=== PATIENT | male | born 1970 | race Caucasian/White ===

== ENCOUNTER 2016-08-13 05:33 | Emergency (ER) | payer OTHER ==
[~2016-08-13] VITALS: Ht 182.9 cm; Wt 77.8 kg
[~2016-08-13 05:33] MED LIST: CLX/20 PO; OMEP20TA PO
[2016-08-13 05:37] VITALS: TEMP 36.7; Ht 182.9 cm; Wt 77.8 kg
--- NOTE | 2016-08-13 06:25 | EMERGENCY ROOM VISIT NOTE ---
History Report prepared by Faisalibsilverio: Margaret Haji Under the Supervision of: Dr. Ana Lilia Jenkins M.D. First contact with patient: 05:56 Chief Complaint: SEIZURE Stated Complaint: SEIZURE Nursing Triage Summary: pt was on seizure medication 8 years ago from a seizure after hitting his head. patient states he has not had a seizure in 8 years. states she was driving patient to work and she witnessed him having a seizure for aproximately 1 minute. patient then was unresponsive for approximately 2 minutes after event. states became rigid on bilateral arms and shaking his head with eyes rolled into head. tearful at this time. patient states he is really scared.. he has no idea what happened. History of Present Illness The patient is a 45 year old male who presents to the Emergency Room to be evaluated after a seizure that occurred this morning. Per patient's , she was driving the patient to work when she looked over and saw his left hand curled in while he was shaking profusely. He only began to respond to verbal stimuli about a minute and a half later. When she asked how he was, he said that he was fine. Currently, the patient has a slight headache. He has had a frontal headache all week and developed a head cold a few days ago. The patient reports a history of one seizure over 8 years ago after trauma to his head. He was on Dilantin but was taken off of it 8 years ago. The patient chews tobacco and drinks 2 cans of beer almost every night. He denies drinking more than usual last night. He also denies the possibility of withdrawal. He has never felt like this after drinking alcohol. He had a normal amount of sleep last night. He denies unusual caffeine intake this morning. He does not smoke. Source of History: patient, spouse/significant other Onset: this morning Position: other (Global) Quality: other (seizure) Timing: resolved Associated Symptoms: + headache Review of Systems See HPI for pertinent positives & negatives. A total of 10 systems reviewed and were otherwise negative. Past Medical & Surgical Medical Problems: (1) Back pain (2) Contusion of foot (3) Epigastric abdominal pain (4) Neck pain on right side (5) Shoulder sprain Family History FH: heart disease Hypertension Social History Smoking Status: Never Smoker Alcohol Use: occasionally Marital Status: Housing Status: lives with family Occupation Status: employed Current/Historical Medications Scheduled Citalopram (Citalopram Hydrobromide), 20 MG PO DAILY Levetiracetam (Keppra), 1 TAB PO BID Allergies Coded Allergies: No Known Allergies (Verified , 08/04/15) Physical Exam Vital Signs Date Time Temp Pulse Resp B/P Pulse Ox O2 Delivery O2 Flow Rate FiO2 08/13/16 07:40 92 18 127/85 97 Room Air 08/13/16 07:07 79 18 140/92 97 Room Air 08/13/16 06:47 78 20 153/101 98 Room Air 08/13/16 06:11 96 08/13/16 05:37 36.7 98 18 154/94 99 Room Air Physical Exam Vital signs reviewed. General: Well-appearing 45 year old male, in no significant distress. HEENT: No scleral icterus, PERRLA, poor dentition. neck supple. Atraumatic. Poor dentition. Cardiovascular: Regular rate and rhythm, no extra sounds. Pulmonary: Clear to auscultation bilaterally, normal work of breathing. Abdomen: Soft, nontender, nondistended, positive bowel sounds. Musculoskeletal: Atraumatic, no peripheral edema. Neurologic: Patient awake alert and oriented x 3, full strength in all 4 extremities. Cranial nerves 2 through 12 grossly intact. No meningeal signs. Skin: Warm, dry, no rash Medical Decision & Procedures ER Provider Diagnostic Interpretation: CT results as stated below per my review and radiologist interpretation: CT OF THE HEAD WITHOUT CONTRAST CLINICAL HISTORY: Seizure. COMPARISON STUDY: Head CT December 30, 2011. CT DOSE: 537.48 mGy.cm TECHNIQUE: Helical axial images of the head were obtained without IV contrast. Automated exposure control was utilized for the study. FINDINGS: No acute intracranial hemorrhage, midline shift or mass effect is present. Ventricular system is normal. The basilar cisterns are patent. There are no extra-axial collections. Dominguez-white differentiation is maintained. There are no findings to suggest acute dural sinus thrombosis or acute territorial infarct. There is no calvarial fracture. There is mild mucosal thickening in the sinuses, most evident within the right maxillary sinus. IMPRESSION: 1. No acute intracranial findings. 2. Mild mucosal thickening of the sinuses. 3. No calvarial fracture. Electronically signed by: All Price M.D. 08/13/2016 7:07 AM Dictated Date/Time: 08/13/2016 7:05 AM Laboratory Results 08/13/16 06:00 Red Blood Count 4.55, Mean Corpuscular Volume 92.5, Mean Corpuscular Hemoglobin 34.3, Mean Corpuscular Hemoglobin Concent 37.1, Mean Platelet Volume 9.0, Neutrophils (%) (Auto) 45.6, Lymphocytes (%) (Auto) 39.6, Monocytes (%) (Auto) 11.5, Eosinophils (%) (Auto) 2.6, Basophils (%) (Auto) 0.2, Neutrophils # (Auto ) 1.90, Lymphocytes # (Auto) 1.65, Monocytes # (Auto) 0.48, Eosinophils # (Auto ) 0.11, Basophils # (Auto) 0.01 08/13/16 06:00 Test 08/13/16 05:59 08/13/16 06:00 08/13/16 06:20 08/13/16 06:45 Bedside Glucose 106 mg/dl (70-99) White Blood Count 4.17 K/uL (4.8-10.8) Red Blood Count 4.55 M/uL (4.7-6.1) Hemoglobin 15.6 g/dL (14.0-18.0) Hematocrit 42.1 % (42-52) Mean Corpuscular Volume 92.5 fL (80-100) Mean Corpuscular Hemoglobin 34.3 pg (25-34) Mean Corpuscular Hemoglobin Concent 37.1 g/dl (32-36) Platelet Count 225 K/uL (130-400) Mean Platelet Volume 9.0 fL (7.4-10.4) Neutrophils (%) (Auto) 45.6 % Lymphocytes (%) (Auto) 39.6 % Monocytes (%) (Auto) 11.5 % Eosinophils (%) (Auto) 2.6 % Basophils (%) (Auto) 0.2 % Neutrophils # (Auto) 1.90 K/uL (1.4-6.5) Lymphocytes # (Auto) 1.65 K/uL (1.2-3.4) Monocytes # (Auto) 0.48 K/uL (0.11-0.59) Eosinophils # (Auto) 0.11 K/uL (0-0.5) Basophils # (Auto) 0.01 K/uL (0-0.2) RDW Standard Deviation 40.6 fL (36.4-46.3) RDW Coefficient of Variation 12.0 % (11.5-14.5) Immature Granulocyte % (Auto) 0.5 % Immature Granulocyte # (Auto) 0.02 K/uL (0.00-0.02) Anion Gap 10.0 mmol/L (3-11) Est Creatinine Clear Calc Drug Dose 127.8 ml/min Estimated GFR () 125.3 Estimated GFR (Non- 108.1 BUN/Creatinine Ratio 10.1 (10-20) Calcium Level 8.9 mg/dl (8.5-10.1) Magnesium Level 2.2 mg/dl (1.8-2.4) Total Bilirubin 0.6 mg/dl (0.2-1) Direct Bilirubin 0.1 mg/dl (0-0.2) Aspartate Amino Transf (AST/SGOT) 14 U/L (15-37) Alanine Aminotransferase (ALT/SGPT) 21 U/L (12-78) Alkaline Phosphatase 75 U/L (45-117) Total Protein 7.8 gm/dl (6.4-8.2) Albumin 4.0 gm/dl (3.4-5.0) Salicylates Level < 1.7 mg/dl (2.8-20) Acetaminophen Level < 2 ug/ml (10-30) Ethyl Alcohol mg/dL < 3.0 mg/dl (0-3) Urine Color YELLOW Urine Appearance CLOUDY (CLEAR) Urine pH 7.5 (4.5-7.5) Urine Specific Sabael 1.002 (1.000-1.030) Urine Protein NEG (NEG) Urine Glucose (UA) NEG (NEG) Urine Ketones NEG (NEG) Urine Occult Blood NEG (NEG) Urine Nitrite NEG (NEG) Urine Bilirubin NEG (NEG) Urine Urobilinogen NEG (NEG) Urine Leukocyte Esterase NEG (NEG) Urine WBC (Auto) 0 /hpf (0-5) Urine RBC (Auto) 0-4 /hpf (0-4) Urine Hyaline Casts (Auto) 0 /lpf (0-5) Urine Epithelial Cells (Auto) 0-5 /lpf (0-5) Urine Bacteria (Auto) NEG (NEG) Urine Opiates Screen NEG (NEG) Urine Methadone, Qualitative NEG (NEG) Urine Barbiturates NEG (NEG) Urine Phencyclidine (PCP) Level NEG (NEG) Ur Amphetamine/Methamphetamine NEG (NEG) MDMA (Ecstasy) Screen NEG (NEG) Urine Benzodiazepines Screen NEG (NEG) Urine Cocaine Metabolite NEG (NEG) Urine Marijuana (THC) NEG (NEG) Laboratory results per my review. Medications Administered Medications (Trade) Dose Ordered Sig/Riri Route Start Time Stop Time Status Last Admin Dose Admin Potassium Citrate (Urocit-K Tab) 40 meq NOW STAT PO 08/13/16 07:18 08/13/16 07:19 DC 08/13/16 07:31 40 MEQ Levetiracetam (Keppra Tab) 500 mg NOW STAT PO 08/13/16 07:33 08/13/16 07:35 DC 08/13/16 07:56 500 MG ECG Indication: other (seizure) Rate (beats per minute): 89 Rhythm: normal sinus Findings: no acute ischemic change, no ectopy ED Course 0610: The patient was evaluated in room B6. A complete history and physical examination was performed. 0718: Ordered Potassium Citrate 40 meq PO. 0733: Ordered Keppra Tab 500 mg PO. 0739: Upon reevaluation, the patient was resting comfortably. I discussed findings with him. He verbalized agreement of the treatment plan. The patient was discharged home. Medical Decision Differential diagnosis: Intracranial hemorrhage, intracranial mass, migraine headache, tension headache , sinusitis, meningitis Pt was placed on the school lunch monitor with SZ precautions maintained. CT head was performed and is negative. Lab work reveals a mild hypokalemia, pt was given 40 MEq of KCl. Lab work is otherwise unrevealing. There does not appear to be a specific trigger for the SZ today. I discussed the case with Dr Berger who suggests that b/c this is the second SZ he should be placed on medications. He was given Keppra 500 mg po in ED and a Rx for [address] Berger recommends close f/u with PCP for EEG/MRI and referral to neurology. Pt was informed of the plan. He was d/c to care of his and will return to the ED for worsening of symptoms or any medical concerns. Impression Primary Impression: Seizure Scribe Attestation The scribe's documentation has been prepared under my direction and personally reviewed by me in its entirety. I confirm that the note above accurately reflects all work, treatment, procedures, and medical decision making performed by me. Departure Information Dispostion Home / Self-Care Prescriptions Levetiracetam (KEPPRA) 500 Mg Tab 1 TAB PO BID for 30 Days, #60 TAB 5 Refills Prov: Ana Lilia Jenkins M.D. 08/13/16 Referrals Justin Suarez M.D.(JUAN) (PCP) Patient Instructions My [facility], Seizures - [facility] Additional Instructions Diagnosis: Seizure Keppra 500 mg twice daily Do not drive until you are cleared by neurology Drink plenty of clear fluids. Follow up with your PCP this week for reevaluation and referral to neurology. Return to the ER for worsening of symptoms or any medical concerns.
[2016-08-13 06:31] LABS: BASO % 0.2 %; BASO ABS # 0.01 K/uL (0-0.2); COMPLETE YES; EOS % 2.6 %; HEMATOCRIT 42.1 % (42-52); IG% 0.5 %; LYMPH % 39.6 %; LYMPH ABS # 1.65 K/uL (1.2-3.4); MEAN CELL VOLUME 92.5 fL (80-100); MEAN CORPUSCULAR HEMOGLOBIN 34.3 pg (25-34); MEAN CORPUSCULAR HGB CONC 37.1 g/dl (32-36); MONO % 11.5 %; NEUT % 45.6 %; PLATELET COUNT 225 K/uL (130-400); RED BLOOD COUNT 4.55 M/uL (4.7-6.1); WHITE BLOOD COUNT 4.17 K/uL (4.8-10.8)
[2016-08-13 06:51] LABS: BUN/CREATININE RATIO 10.1 (10-20); CALCIUM 8.9 mg/dl (8.5-10.1); CREATININE 0.81 mg/dl (0.60-1.40); MAGNESIUM 2.2 mg/dl (1.8-2.4); POTASSIUM 3.2 mmol/L (3.5-5.1)
[2016-08-13 07:02] LABS: MANUAL MICROSCOPIC REQUIRED? NO; REVIEW REQ? NO; URINE APPEARANCE CLOUDY (CLEAR); URINE BILIRUBIN NEG (NEG); URINE COLOR YELLOW; URINE EPITHELIAL CELL AUTO 0-5 /lpf (0-5); URINE NITRITE NEG (NEG); URINE PH 7.5 (4.5-7.5); URINE SPECIFIC GRAVITY 1.002 (1.000-1.030); UROBILINOGEN NEG (NEG); ZZUR CULT IF INDIC CLEAN CATCH NO
[2016-08-13 07:03] LABS: ACETAMINOPHEN < 2 ug/ml (10-30)
--- NOTE | 2016-08-13 07:08 | DIAGNOSTIC IMAGING REPORT ---
CT OF THE HEAD WITHOUT CONTRAST CLINICAL HISTORY: Seizure. COMPARISON STUDY: Head CT December 30, 2011. CT DOSE: 537.48 mGy.cm TECHNIQUE: Helical axial images of the head were obtained without IV contrast. Automated exposure control was utilized for the study. FINDINGS: No acute intracranial hemorrhage, midline shift or mass effect is present. Ventricular system is normal. The basilar cisterns are patent. There are no extra-axial collections. Dominguez-white differentiation is maintained. There are no findings to suggest acute dural sinus thrombosis or acute territorial infarct. There is no calvarial fracture. There is mild mucosal thickening in the sinuses, most evident within the right maxillary sinus. IMPRESSION: 1. No acute intracranial findings. 2. Mild mucosal thickening of the sinuses. 3. No calvarial fracture. Electronically signed by: All Price M.D. 08/13/2016 7:07 AM Dictated Date/Time: 08/13/2016 7:05 AM
[2016-08-13] MEDS ORDERED: POTASSIUM CITRATE 10 MEQ TAB PO STA (07:18)
[2016-08-13] MEDS ORDERED: LEVETIRACETAM 500 MG TAB PO STA (07:33)
[2016-08-13] MEDS ORDERED: LEVE500T13 PO (07:36)
[2016-08-13 07:40] VITALS: BP 127/85; PULSE 92; O2SAT 97
[2016-08-13 07:50] LABS: BENZODIAZEPINE, URINE NEG (NEG); COCAINE,URINE NEG (NEG); PHENCYCLIDINE, URINE NEG (NEG)
== END 2016-08-13 07:59 | disposition home or self-care (01) ==
LOC: C.EDB 05:34
DX: G40.909 Epilepsy, unspecified, not intractable, without status epilepticus (principal); Z87.820 Personal history of traumatic brain injury; Z87.828 Personal history of other (healed) physical injury and trauma; Z79.899 Other long term (current) drug therapy; Z82.49 Family history of ischemic heart disease and other diseases of the circulatory system

== ENCOUNTER → 2016-09-16 | Outpatient (CLI) | payer OTHER ==
[~2016-09-16] MED LIST changes: +GADAVIST IV PRN; +LEVE500T13 PO; -OMEP20TA PO
--- NOTE | 2016-09-16 08:44 | DIAGNOSTIC IMAGING REPORT ---
ORBIT RADIOGRAPHS 3 VIEWS HISTORY: Pre-MRI screening pre-MRI screening. COMPARISON: None. FINDINGS: There are no radiopaque foreign bodies identified within the orbits. IMPRESSION: No radiopaque foreign bodies identified within the orbits. Electronically signed by: Emiliano Cohen M.D. 09/16/2016 8:42 AM Dictated Date/Time: 09/16/2016 8:41 AM
--- NOTE | 2016-09-16 10:57 | DIAGNOSTIC IMAGING REPORT ---
MRI OF THE BRAIN WITHOUT AND WITH IV CONTRAST SEIZURE PROTOCOL CLINICAL HISTORY: Seizure. COMPARISON STUDY: Head CT August 13, 2016. TECHNIQUE: Utilizing a 1.5 Karina magnet and dedicated coil, multiplanar, multiecho imaging of the brain was performed pre and postcontrast administration. IV administration of 7 mL of Gadavist contrast was uneventful. Thin cut coronal T2 imaging was performed according to seizure protocol. FINDINGS: There are no areas of restricted diffusion. No acute intracranial hemorrhage, midline shift or mass effect is present. Brain volume is normal. Ventricular system is normal. Basilar cisterns are patent. There are no extra-axial collections. Flow-voids for the major intracranial vessels are present. There are no intracranial masses or areas of pathologic enhancement. There is no MRI evidence of mesial temporal sclerosis. There are scattered subcortical white matter T2 hyperintense foci. Calvarial signal is maintained. Orbits and sinuses are unremarkable. IMPRESSION: 1. No acute intracranial findings. 2. No intracranial mass or pathologic enhancement. 3. Several subcortical white matter T2 hyperintense foci. The findings could reflect small vessel disease or sequela of migraine headaches although are entirely nonspecific. Electronically signed by: All Price M.D. 09/16/2016 10:56 AM Dictated Date/Time: 09/16/2016 10:48 AM
== END | disposition home or self-care (01) ==
LOC: C.MRI 08:03
PROVIDERS: ATTEND Internal Medicine Cardiovascular Disease
DX: G40.119 Localization-related (focal) (partial) symptomatic epilepsy and epileptic syndromes with simple partial seizures, intractable, without status epilepticus (principal); Z13.5 Encounter for screening for eye and ear disorders

== ENCOUNTER → 2016-09-20 | Outpatient (CLI) | payer OTHER ==
[~2016-09-20] MED LIST changes: -GADAVIST IV PRN
--- NOTE | 2016-09-20 23:29 | ELECTROENCEPHALOGRAPH REPORT ---
REQUESTED BY: Alejandra Tirado PA-C. CLINICAL DIAGNOSIS: Single seizure 4 weeks ago, question underlying epilepsy. EEG DIAGNOSIS: Essentially normal during wakefulness. DESCRIPTION OF TRACING: This EEG was done in the laboratory, was excellent technical quality with few or no muscle or movement artifacts. Simultaneous video analysis of patient movement and behavior was obtained. Photic stimulation was performed. Hyperventilation was not. Drowsiness is not seen consistently except in brief episodes. No sleep recording is obtained. Under these conditions, there is evidence for normal appearing background rhythm in the alpha range of up to 10-11 Hz of maximum frequency and 30 microvolts of maximum amplitude. This is maximum in posterior head regions and bilaterally symmetrical. Polymorphic mid frequency theta activity is seen over all head regions without clear focal or regional predominance. Anterior head region maximal bilaterally symmetrical low-voltage fast activity in the beta range is present. Photic stimulation provoked some minimal driving response. No photomyogenic or photoparoxysmal components were noted. Short duration of drowsiness is obtained during which no normal activations are seen. At no time during the waking or brief patient drowsy tracing is there evidence for potentially epileptogenic activity in the form of polyspike or spike wave bursts, focal sharp waves or focal spikes. INTERPRETATION: This electroencephalogram is essentially normal during wakefulness without evidence for focal or generalized encephalopathy and without evidence for potentially epileptogenic activity.
== END | disposition home or self-care (01) ==
LOC: C.NEUR 13:05
PROVIDERS: ATTEND Internal Medicine Cardiovascular Disease
DX: G40.119 Localization-related (focal) (partial) symptomatic epilepsy and epileptic syndromes with simple partial seizures, intractable, without status epilepticus (principal)

== ENCOUNTER 2017-05-06 06:29 | Emergency (ER) | payer OTHER ==
[~2017-05-06] VITALS: Ht 182.9 cm; Wt 79.4 kg
[2017-05-06 06:33] VITALS: TEMP 36.5; Ht 182.9 cm; Wt 79.4 kg
[2017-05-06] MEDS ORDERED: SODIUM CHLORIDE 0.9% 1000ML 1,000 ML IV STA (07:09)
[2017-05-06 07:35] LABS: URINE APPEARANCE CLEAR (CLEAR); URINE BILIRUBIN NEG (NEG); URINE COLOR YELLOW; URINE NITRITE NEG (NEG); URINE SPECIFIC GRAVITY 1.007 (1.000-1.030); UROBILINOGEN NEG (NEG)
[2017-05-06] MEDS ORDERED: LEVE500T13 PO (07:40)
[2017-05-06 07:45] LABS: MANUAL MICROSCOPIC REQUIRED? NO; REVIEW REQ? NO
[2017-05-06 07:53] LABS: BASO % 0.2 %; BASO ABS # 0.01 K/uL (0-0.2); COMPLETE YES; EOS % 1.4 %; HEMATOCRIT 43.8 % (42-52); IG% 0.4 %; LYMPH % 30.6 %; LYMPH ABS # 1.52 K/uL (1.2-3.4); MEAN CELL VOLUME 93.4 fL (80-100); MEAN CORPUSCULAR HEMOGLOBIN 34.8 pg (25-34); MEAN CORPUSCULAR HGB CONC 37.2 g/dl (32-36); MEAN PLATELET VOLUME 9.2 fL (7.4-10.4); NEUT % 59.4 %; PLATELET COUNT 204 K/uL (130-400); RED BLOOD COUNT 4.69 M/uL (4.7-6.1); WHITE BLOOD COUNT 4.97 K/uL (4.8-10.8)
--- NOTE | 2017-05-06 07:55 | DIAGNOSTIC IMAGING REPORT ---
PA CHEST WITH ABDOMINAL SERIES CLINICAL HISTORY: Central abdominal pain. FINDINGS: A PA chest radiograph is compared to study dated 08/04/2015. The cardiomediastinal silhouette is unremarkable. The lungs and pleural spaces are clear. No pneumothorax is seen. The bony thorax is grossly intact. Supine and erect abdominal radiographs are correlated with abdominal ultrasound dated 09/08/2010. There is a nonobstructed abdominal bowel gas pattern. No evidence of intraperitoneal free air is seen. There are calcified splenic granulomas seen in the left upper quadrant. A phlebolith is noted in the left hemipelvis. The lumbosacral spine and bony pelvis appear intact. IMPRESSION: 1. No active disease in the chest. 2. Nonobstructed abdominal bowel gas pattern. Electronically signed by: Harvinder Pritchett M.D. 05/06/2017 7:54 AM Dictated Date/Time: 05/06/2017 7:53 AM
[2017-05-06 08:12] LABS: BUN/CREATININE RATIO 11.5 (10-20); CALCIUM 9.3 mg/dl (8.5-10.1); CREATININE 0.88 mg/dl (0.60-1.40); POTASSIUM 3.6 mmol/L (3.5-5.1)
[2017-05-06 08:45] VITALS: BP 134/79; PULSE 84; O2SAT 98
--- NOTE | 2017-05-06 17:41 | EMERGENCY ROOM VISIT NOTE ---
History First contact with patient: 07:01 Chief Complaint: ABDOMINAL PAIN Stated Complaint: STOMACH Nursing Triage Summary: Per patient report c/o mid abd pain since yesterday. denies N/V or diarrhea. History of Present Illness The patient is a 46 year old male who presents to the Emergency Room with complaints of central noncolicky abdominal pain that started yesterday at 2 PM. The patient denies any alleviating or aggravating factors for his pain. He denies any nausea, vomiting, recent diarrhea or constipation. He does report that his bowel movements have been more firm lately. He has not noticed any blood or mucus in his stools. He denies any GI history, pancreatitis, hepatitis or gallbladder problems. He denies any darkened urine, hematuria or difficulty with urination. He denies any pain radiating into the back or chest. The patient reports that he did take some Zantac last evening without any relief. He denies any other recent illness, fever or chills ER he had the patient does drink a cup of coffee and 2 bottles of caffeinated soda daily. He denies any recent significant NSAIDs use. He does not drink alcohol anymore with a recent seizure history. He currently rates his discomfort an 8 out of 10. Review of Systems HEENT: Denies dizziness, visual problems, hearing loss, tinnitus. Denies difficulty swallowing or oral lesions. PULMONARY: Denies cough, shortness of breath, sputum production or hemoptysis. CARDIOVASCULAR: Denies chest pain, palpitations, dyspnea on exertion, orthopnea or peripheral edema. GASTROINTESTINAL: Denies diarrhea, constipation, nausea or vomiting; otherwise see history of present illness. GENITOURINARY: Denies dysuria, frequency, urgency or nocturia. NEUROLOGIC: Recent diagnosis of seizures. MUSCULOSKELETAL: Denies history of joint tenderness/swelling. SKIN: Denies rashes or lesions. PSYCHIATRIC: Denies history of depression or mental illness. ENDOCRINE: Denies history of diabetes or thyroid disorders. Past Medical/Surgical History Medical Problems: (1) Back pain (2) Contusion of foot (3) Epigastric abdominal pain (4) Neck pain on right side (5) Shoulder sprain Family History FH: heart disease Hypertension Social History Smoking Status: Never Smoker Alcohol Use: occasionally Marital Status: Housing Status: lives with family Occupation Status: employed Current/Historical Medications Scheduled Citalopram (Citalopram Hydrobromide), 20 MG PO DAILY Levetiracetam (Keppra), 500 MG PO BID Allergies Coded Allergies: No Known Allergies (Verified , 05/06/17) Physical Exam Vital Signs Date Time Temp Pulse Resp B/P (MAP) Pulse Ox O2 Delivery O2 Flow Rate FiO2 05/06/17 08:45 84 18 134/79 98 Room Air 05/06/17 06:33 36.5 83 20 170/94 99 Room Air Physical Exam CONSTITUTIONAL: Healthy and well nourished. Alert and oriented X 3 with positive affect. Patient does not appear in any acute distress. HEENT: Normocephalic, atraumatic. Pupils equal, round and reactive. No scleral icterus or conjunctival injection/pallor. NECK: Full active range of motion without discomfort. Her JVD or carotid bruits. RESPIRATORY: Clear to auscultation bilaterally with no wheezing, crackles, rhonchi or stridor. CARDIOVASCULAR: Regular rate and rhythm with no murmurs, rubs or gallops. GASTROINTESTINAL: Bowel sounds present in all quadrants. Patient has minimal generalized central abdominal tenderness to palpation. No rigidity, guarding or rebound. Negative McBurney's point tenderness. No focal left lower quadrant tenderness. Negative Merrill sign. Negative CVA tenderness. MUSCULOSKELETAL: Full range of motion of all joints without discomfort. INTEGUMENTARY: No rash or other significant dermatologic conditions noted. HEMATOLOGIC: No ecchymosis or petechiae. NEUROLOGIC: No focal neurologic deficits noted. Medical Decision & Procedures ER Provider Diagnostic Interpretation: My interpretation of an abdomen obstruction series with a PA chest view does not show any obstructive pattern, free air or significant fecal load. Radiologist report is as follows: PA CHEST WITH ABDOMINAL SERIES CLINICAL HISTORY: Central abdominal pain. FINDINGS: A PA chest radiograph is compared to study dated 08/04/2015. The cardiomediastinal silhouette is unremarkable. The lungs and pleural spaces are clear. No pneumothorax is seen. The bony thorax is grossly intact. Supine and erect abdominal radiographs are correlated with abdominal ultrasound dated 09/08/2010. There is a nonobstructed abdominal bowel gas pattern. No evidence of intraperitoneal free air is seen. There are calcified splenic granulomas seen in the left upper quadrant. A phlebolith is noted in the left hemipelvis. The lumbosacral spine and bony pelvis appear intact. IMPRESSION: 1. No active disease in the chest. 2. Nonobstructed abdominal bowel gas pattern. Laboratory Results 05/06/17 07:25 Red Blood Count 4.69, Mean Corpuscular Volume 93.4, Mean Corpuscular Hemoglobin 34.8, Mean Corpuscular Hemoglobin Concent 37.2, Mean Platelet Volume 9.2, Neutrophils (%) (Auto) 59.4, Lymphocytes (%) (Auto) 30.6, Monocytes (%) (Auto) 8.0, Eosinophils (%) (Auto) 1.4, Basophils (%) (Auto) 0.2, Neutrophils # (Auto) 2.95, Lymphocytes # (Auto) 1.52, Monocytes # (Auto) 0.40, Eosinophils # (Auto) 0.07, Basophils # (Auto) 0.01 05/06/17 07:25 Test 05/06/17 07:25 White Blood Count 4.97 K/uL (4.8-10.8) Red Blood Count 4.69 M/uL (4.7-6.1) Hemoglobin 16.3 g/dL (14.0-18.0) Hematocrit 43.8 % (42-52) Mean Corpuscular Volume 93.4 fL (80-100) Mean Corpuscular Hemoglobin 34.8 pg (25-34) Mean Corpuscular Hemoglobin Concent 37.2 g/dl (32-36) Platelet Count 204 K/uL (130-400) Mean Platelet Volume 9.2 fL (7.4-10.4) Neutrophils (%) (Auto) 59.4 % Lymphocytes (%) (Auto) 30.6 % Monocytes (%) (Auto) 8.0 % Eosinophils (%) (Auto) 1.4 % Basophils (%) (Auto) 0.2 % Neutrophils # (Auto) 2.95 K/uL (1.4-6.5) Lymphocytes # (Auto) 1.52 K/uL (1.2-3.4) Monocytes # (Auto) 0.40 K/uL (0.11-0.59) Eosinophils # (Auto) 0.07 K/uL (0-0.5) Basophils # (Auto) 0.01 K/uL (0-0.2) RDW Standard Deviation 40.9 fL (36.4-46.3) RDW Coefficient of Variation 12.1 % (11.5-14.5) Immature Granulocyte % (Auto) 0.4 % Immature Granulocyte # (Auto) 0.02 K/uL (0.00-0.02) Urine Color YELLOW Urine Appearance CLEAR (CLEAR) Urine pH 8.0 (4.5-7.5) Urine Specific [place] 1.007 (1.000-1.030) Urine Protein NEG (NEG) Urine Glucose (UA) NEG (NEG) Urine Ketones NEG (NEG) Urine Occult Blood NEG (NEG) Urine Nitrite NEG (NEG) Urine Bilirubin NEG (NEG) Urine Urobilinogen NEG (NEG) Urine Leukocyte Esterase NEG (NEG) Anion Gap 6.0 mmol/L (3-11) Est Creatinine Clear Calc Drug Dose 116.4 ml/min Estimated GFR () 120.2 Estimated GFR (Non- 103.7 BUN/Creatinine Ratio 11.5 (10-20) Calcium Level 9.3 mg/dl (8.5-10.1) Total Bilirubin 1.1 mg/dl (0.2-1) Direct Bilirubin 0.2 mg/dl (0-0.2) Aspartate Amino Transf (AST/SGOT) 24 U/L (15-37) Alanine Aminotransferase (ALT/SGPT) 39 U/L (12-78) Alkaline Phosphatase 65 U/L (45-117) Total Creatine Kinase 76 U/L (39-308) Total Protein 7.8 gm/dl (6.4-8.2) Albumin 4.1 gm/dl (3.4-5.0) Lipase 154 U/L (73-393) The above labs were reviewed and were grossly normal. Medications Administered Medications (Trade) Dose Ordered Sig/Riri Route Start Time Stop Time Status Last Admin Dose Admin Sodium Chloride 1,000 ml @ 999 mls/hr Q1H1M STAT IV 05/06/17 07:09 05/06/17 08:09 DC 05/06/17 07:28 999 MLS/HR ED Course Patient history and physical exam were performed. Nurse's notes were reviewed. Vital signs were reviewed, showing an elevated blood pressure 170/94. A later blood pressure was 134/79. The patient is afebrile and not tachycardic. O2 saturation is 99% on room air. IV access was established and labs were drawn. The patient was hydrated with a liter normal saline. He refused any analgesics. Review of labs did not show any acute abnormalities. An abdomen obstruction series with a PA chest was also normal. The case was further discussed with Dr. Crespo, ED attending physician, who agrees with workup and outpatient plan of care. The patient was encouraged to follow-up with his PCP if pain persists. He was also instructed to return to the emergency department for any progressively worsening pain. I did explain the possibility of early appendicitis. He was instructed also watch for any developing fever, urinary symptoms, rectal bleeding, chest pain or shortness of breath. The patient was happy with plan care, voiced understanding of all discharge instructions, and denied any significant discomfort at the conclusion of my exam. Medical Decision Patient presents to the emergency department with complaint of mild generalized abdominal pain. His physical exam is not all that impressive. Laboratory studies are normal, and not suggestive of acute pancreatitis, cholecystitis or hepatitis. The patient has no exam findings suggestive of peritonitis, diverticulitis, appendicitis or pyelonephritis. At this point, I feel that the patient is safe for outpatient follow-up with his PCP, returning to the emergency department with any worsening symptoms. Impression Primary Impression: Generalized abdominal pain Departure Information Referrals Justin Suarez M.D.([facility]) (PCP) Patient Instructions [facility]
== END 2017-05-06 08:53 | disposition home or self-care (01) ==
LOC: C.EDB 06:30 → C.EDA 08:53
DX: R10.84 Generalized abdominal pain (principal); G40.909 Epilepsy, unspecified, not intractable, without status epilepticus; Z79.899 Other long term (current) drug therapy; Z87.828 Personal history of other (healed) physical injury and trauma; Z82.49 Family history of ischemic heart disease and other diseases of the circulatory system

== ENCOUNTER 2017-05-12 19:03 | Emergency (ER) | payer OTHER ==
[~2017-05-12] VITALS: Ht 182.9 cm; Wt 75.5 kg
[~2017-05-12 19:03] MED LIST changes: -CLX/20 PO
[2017-05-12 19:05] VITALS: TEMP 37.1; Ht 182.9 cm; Wt 75.5 kg
[2017-05-12] MEDS ORDERED: PRLSR20 PO (19:18)
[2017-05-12] MEDS ORDERED: CLX/20 PO (19:29)
[2017-05-12] MEDS ORDERED: DOXYCYCLINE HYCLATE 100 MG CAP PO ONE (19:30)
[2017-05-12 19:35] VITALS: BP 147/98; PULSE 103; O2SAT 94
--- NOTE | 2017-05-13 02:29 | EMERGENCY ROOM VISIT NOTE ---
ED Visit Note First contact with patient: 19:09 Chief Complaint: I've a tick bite on the left side of my neck. History of Present Illness: Mr. Rush is a 46-year-old male who ambulates into the ED complaining of a tick embedded on the left side of his neck. Patient is unsure of how long the tick has been embedded in his neck. He has no associated symptoms including pain in the area of the implanted tick, fevers , joint pains, skin eruptions, skin color changes, headache, chest pain, shortness of breath. Review of Systems: As noted above in history of present illness. Past Medical History: Patient denies. Current Medications: Citalopram, Or, Prilosec. Allergies to Medications: Patient denies. Social History: Patient is currently employed; he feels safe in his home environment; he admits to tobacco use and denies alcohol use. Tetanus Immunization Status: Patient reports up to date. Physical Examination: Vital Signs: Date Time Temp Pulse Resp B/P (MAP) Pulse Ox O2 Delivery O2 Flow Rate FiO2 05/12/17 19:35 103 16 147/98 94 05/12/17 19:05 37.1 89 18 153/91 99 Room Air GENERAL: 46-year-old male in no acute distress, nontoxic-appearing, afebrile and hemodynamically stable. NEUROLOGICAL: Awake, alert and oriented to person, place and time. Answering questions appropriately and following commands. Normal gait. Good hand eye coordination. SKIN: Warm, dry and pink. No soft tissue eruptions or trauma noted. Tick embedded on the left side of the neck. The tick isn't engorged. The surrounding tissues are not erythematous or edematous. ED Course: Patient is assessed as noted above. Patient's medication list was reviewed. Tick Removal: Verbal consent was obtained after the risks and benefits were explained . The skin around the tick was prepped with betadine and a sterile field set. The tick was easily removed with a tick twister. No bleeding occurred. The area was cleansed with Betadine and sterile water. A sterile bacitracin was applied to the area. There were no complications the patient tolerated the procedure well. Patient was given a prophylactic dose of 200 mg of doxycycline for Lyme's disease prophylaxis. Patient was educated about today's findings and instructed on his treatment plan ; he verbalized understanding and agreement with this plan. Clinical Impression: Tick bite. Disposition: Patient discharged home in stable condition; prior to departure he remained pain and symptom-free. Plan: Wound care, signs of infection and signs of Lyme's disease were discussed with the patient. Patient was encouraged to follow-up with PCP or return to the ED for any signs of infection, signs of Lyme's disease or any new/concerning symptoms.
== END 2017-05-12 19:35 | disposition home or self-care (01) ==
LOC: C.EDB 19:04 → C.EDD 19:35
DX: S10.86XA Insect bite of other specified part of neck, initial encounter (principal); W57.XXXA Bitten or stung by nonvenomous insect and other nonvenomous arthropods, initial encounter; Y92.9 Unspecified place or not applicable; Z79.899 Other long term (current) drug therapy; Z72.0 Tobacco use

== ENCOUNTER 2017-11-23 15:52 | Emergency (ER) | payer OTHER ==
[~2017-11-23] VITALS: Ht 182.9 cm; Wt 79.9 kg
[~2017-11-23 15:52] MED LIST changes: +CLX/20 PO; +PRLSR20 PO
[2017-11-23 16:23] VITALS: Ht 182.9 cm; Wt 79.9 kg
[2017-11-23] MEDS ORDERED: DIPHTHERIA/TETANUS/PERTUSSIS 0.5 ML SYR/VIAL IM. ONE (16:45)
--- NOTE | 2017-11-23 17:11 | DIAGNOSTIC IMAGING REPORT ---
R FOOT MIN 3 VIEWS ROUTINE CLINICAL HISTORY: Right foot pain. Puncture wound. COMPARISON: None. DISCUSSION: No acute fractures are visualized. No radiopaque foreign bodies are visualized. IMPRESSION: 1. No evidence of fracture 2. No radiopaque foreign bodies are visualized Electronically signed by: Jeremias Ba M.D. 11/23/2017 5:09 PM Dictated Date/Time: 11/23/2017 5:09 PM
[2017-11-23] MEDS ORDERED: CIPR-255 PO (17:20)
[2017-11-23] MEDS ORDERED: CEPH500C PO (17:20)
[2017-11-23 17:53] VITALS: BP 155/89; PULSE 89; TEMP 37; O2SAT 97
--- NOTE | 2017-11-23 19:42 | EMERGENCY ROOM VISIT NOTE ---
History First contact with patient: 16:27 Chief Complaint: FOOT PAIN Stated Complaint: NAIL IN RIGHT FOOT- History of Present Illness The patient is a 46 year old male who presents to the Emergency Room with complaints of a puncture wound to his right foot when he stepped on a nail at the job site. He reports that the nail went straight through the bottom of his shoe and into the foot. He was able to step off of the nail and completely remove the nail. He rates his discomfort a 5 out of 10. He denies any paresthesias or numbness of the foot or toes. Tetanus immunization is unknown. Review of Systems 10 system review was performed and was negative except for pertinent positives and negatives as indicated in history of present illness Past Medical/Surgical History Medical Problems: (1) Back pain (2) Contusion of foot (3) Epigastric abdominal pain (4) Neck pain on right side (5) Shoulder sprain Family History FH: heart disease FH: seizures Hypertension Social History Smoking Status: Current Every Day Smoker Alcohol Use: occasionally Marital Status: Housing Status: lives with family Occupation Status: employed Current/Historical Medications Scheduled Cephalexin Monohydrate (Keflex), 500 MG PO QID Ciprofloxacin Hcl (Cipro), 500 MG PO BID Citalopram (Citalopram Hydrobromide), 20 MG PO DAILY Levetiracetam (Keppra), 500 MG PO BID Scheduled PRN Omeprazole (Prilosec), 20 MG PO DAILY PRN for ACID REFLUX Physical Exam Vital Signs Date Time Temp Pulse Resp B/P (MAP) Pulse Ox O2 Delivery O2 Flow Rate FiO2 11/23/17 17:53 37.0 89 20 155/89 97 11/23/17 16:23 37.6 126 20 168/93 96 Room Air Physical Exam CONSTITUTIONAL: Healthy and well nourished. Alert and oriented X 3 with positive affect. Patient does not appear in any acute distress. HEENT: Normocephalic, atraumatic. Pupils equal, round and reactive. NECK: Full active range of motion without discomfort. MUSCULOSKELETAL: Examination of the right foot shows a plantar puncture wound near the first MTP joint. No active bleeding or ecchymosis noted. Passive flexion and extension of the first MTP joint does not cause any discomfort. Capillary refill of the toes is less than 2 seconds. INTEGUMENTARY: No rash or other significant dermatologic conditions noted. NEUROLOGIC: Right foot and toes are sensory intact. Medical Decision & Procedures ER Provider Diagnostic Interpretation: My interpretation of right foot x-rays does not show any obvious bony injury or radiopaque foreign bodies. Radiologist report is as follows: R FOOT MIN 3 VIEWS ROUTINE CLINICAL HISTORY: Right foot pain. Puncture wound. COMPARISON: None. DISCUSSION: No acute fractures are visualized. No radiopaque foreign bodies are visualized. IMPRESSION: 1. No evidence of fracture 2. No radiopaque foreign bodies are visualized Medications Administered Medications (Trade) Dose Ordered Sig/Riri Route Start Time Stop Time Status Last Admin Dose Admin Diphtheria/ Pertussis/Tetanus Vacc (Adacel Inj) 0.5 ml ONCE ONCE IM. 11/23/17 16:45 11/23/17 16:46 DC 11/23/17 17:30 0.5 ML ED Course Patient history and physical exam were performed. Nurse's notes were reviewed. Vital signs were reviewed, showing an elevated blood pressure of 168/93. Patient is also tachycardic at 126 bpm with a temperature of 37.6C. The patient denies any recent illness. The patient refused any analgesics on initial exam. The patient was administered Adacel IM. X-rays of the right foot were normal. The patient will be treated with Cipro and Keflex antibiotics to prevent infection. The patient was encouraged to intermittently apply ice to the foot as needed for swelling and pain. Ibuprofen and Tylenol in alternating fashion as needed for additional pain relief. 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 The patient was happy with plan of care, voiced understanding of all discharge instructions, and denied any significant pain at the time of discharge. I did encourage the patient to follow-up with his PCP for blood pressure recheck. Medical Decision Medication Reconcilliation Current Medication List: was personally reviewed by me Blood Pressure Screening Patient's blood pressure: Elevated blood pressure Blood pressure disposition: Referred to PCP Impression Primary Impression: Puncture wound of right foot Additional Impressions: Elevated blood pressure reading Work related injury Departure Information Prescriptions Ciprofloxacin Hcl (CIPRO) 500 Mg Tab 500 MG PO BID for 7 Days, #14 TAB Prov: Pito Riggs PA 11/23/17 Cephalexin Monohydrate (Keflex) 500 Mg Cap 500 MG PO QID for 7 Days, #28 CAP Prov: Pito Riggs PA 11/23/17 Referrals Justin Suarez M.D.([facility]) (PCP) Patient Instructions My [facility] Problem Qualifiers Primary Impression: Puncture wound of right foot Encounter type: initial encounter Qualified Codes: S91.331A - Puncture wound without foreign body, right foot, initial encounter
== END 2017-11-23 17:55 | disposition home or self-care (01) ==
LOC: C.EDB 15:53 → C.EDD 17:55
DX: S91.331A Puncture wound without foreign body, right foot, initial encounter (principal); W45.0XXA Nail entering through skin, initial encounter; Y99.0 Civilian activity done for income or pay; R03.0 Elevated blood-pressure reading, without diagnosis of hypertension; Z23 Encounter for immunization; F17.200 Nicotine dependence, unspecified, uncomplicated